=== PATIENT | female | born 1965 | race Caucasian/White ===

== ENCOUNTER → 2016-11-01 | Outpatient (CLI) | payer OTHER ==
--- NOTE | 2016-11-01 17:22 | US ---
Complete pelvic ultrasound Indication: Unspecified ovarian cyst on the right side. Technique: Transabdominal and transvaginal pelvic ultrasound was performed. Comparison: November 18, 2014. Findings: The uterus measures 8.6 x 6 x 5.7 cm. It is without masses. The endometrial lining measures 1.2 cm, which can be normal if she is still premenopausal. There is no fluid in the endometrial cavi ty. Right ovary measures 5.7 x 5 x 4.1 cm. It is basically replaced by a dominant hypoechoic cyst of 5.6 x 5.3 x 3.6 cm. The cyst is avascular, and no significant ovarian tissue is seen around this cyst in the right adnexa. This has increased in size from 2 years ago. The left ovary measures 2.4 x 2.4 x 1.7 cm. There is a hypoechoic slightly irregularly shaped cyst of 2.2 x 1.7 x 1.1 cm that is new since the prior scan. No free fluid in the pelvis. No definitive complexity is seen in either cyst. Impression: 1. No change in the uterus. 2. Increase in size of the right ovarian cyst. 3. New left ovarian cyst. 4. No definite complexity seen in either cyst.
--- NOTE | 2016-11-01 17:54 | MA ---
Screening Digital Mammogram With iCAD Analysis Clinical Indications: Routine screening. Technique: Standard cephalocaudal projections are obtained. Digital breast tomosynthesis was performe d in the MLO projection with reconstruction at 1.0 mm slice thickness and composite MLO views reconst ructed. This examination is processed by the iCAD computer aided detection system. Comparison: September 2015, September 2014, December 2012, November 2011, October 2010. Breast density: Type B; Scattered fibroglandular densities. Findings: CAD was reviewed. No masses, suspicious calcifications or secondary signs of malignancy are seen. There has been no significant change in the appearance of either breast. Impression: Negative mammogram. BI-RADS 1. Recommendation: Routine mammographic screening in one year as long as physical examination is negativ [facility] will send a result letter to the patient. Negative mammography should not preclude additional workup of a clinically suspicious finding. The patient's information is entered into a reminder system with a target due date for her next mammo gram.
== END ==
LOC: FIMAGING 14:14
PROVIDERS: ATTEND Internal Medicine
DX: Z12.31 Encounter for screening mammogram for malignant neoplasm of breast (principal); N83.201 Unspecified ovarian cyst, right side; N83.202 Unspecified ovarian cyst, left side

== ENCOUNTER → 2017-07-08 | Outpatient (CLI) | payer OTHER | LOC: FIMAGING 10:29 | PROVIDERS: ATTEND Family Medicine | DX: N83.201 Unspecified ovarian cyst, right side (principal); N83.202 Unspecified ovarian cyst, left side ==

== ENCOUNTER → 2017-11-30 | Outpatient (CLI) | payer OTHER | LOC: FIMAGING 11:28 | PROVIDERS: ATTEND Family Medicine | DX: Z12.31 Encounter for screening mammogram for malignant neoplasm of breast (principal) ==

== ENCOUNTER → 2018-12-25 | Outpatient (CLI) | payer OTHER | LOC: FIMAGING 11:44 | PROVIDERS: ATTEND Family Medicine | DX: Z12.31 Encounter for screening mammogram for malignant neoplasm of breast (principal) ==